=== PATIENT | female | born 1955 | race Caucasian/White ===

== ENCOUNTER 2017-08-21 07:49 | Day surgery (SDC) | payer MEDICAID ==
[~2017-08-21] VITALS: Ht 134.6 cm; Wt 71.2 kg
[~2017-08-21 07:49] MED LIST: BALANCED SALT IRRIG SOLN COMB1 500ML OP ONE
[2017-08-21] MEDS ORDERED: TROPICAMIDE 1% OPHTH DROPS 15ML LEFTEYE ONE (08:30)
[2017-08-21] MEDS ORDERED: CYCLOPENTOLATE HCL 2% OPHTH DROPS 2ML LEFTEYE ONE (08:30)
[2017-08-21] MEDS ORDERED: PHENYLEPHRINE HCL 10% OPHTH DROPS 5ML LEFTEYE ONE (08:30)
[2017-08-21 08:55] LABS: BASOPHILS % 1.8 % (0.0-2.0); EOSINOPHILS % 2.9 % (0.0-5.0); HEMATOCRIT. 38.2 % (36.0-48.0); LYMPHOCYTES % 38.4 % (20.0-50.0); MEAN CORPUSCULAR VOLUME 87.9 fL (81.0-99.0); MEAN PLATELET VOLUME 10.5 fl (7.4-10.4); MONOCYTES % 7.4 % (2.0-8.0); NEUTROPHILS % 49.5 % (40.0-76.0); PLATELET 193 x1000/uL (130-400); RED BLOOD CELL COUNT 4.34 mill/uL (4.2-5.4); RED CELL DISTRIBUTION WIDTH 12.8 % (11.6-14.6)
[2017-08-21 09:01] LABS: CARBON DIOXIDE 26 mEq/L (21-32); CHLORIDE 107 mEq/L (98-107)
[2017-08-21] MEDS ORDERED: SODIUM CHLORIDE 0.9% 1,000 ML IV ONE (09:30)
[2017-08-21] MEDS ORDERED: SITA1TAB6 PO (09:57)
[2017-08-21] MEDS ORDERED: HYALURONATE SODIUM 14 MG/ML 0.85ML SYRINGE IO ONE (10:54)
[2017-08-21] MEDS ORDERED: LIDOCAINE HCL 1% 20ML VIAL (Pyxis) INJ ONE (11:01)
[2017-08-21] MEDS ORDERED: PROPOFOL 200MG/20ML VIAL IV ONE (11:01)
[2017-08-21] MEDS ORDERED: LABETALOL HCL 20MG/4ML CARPUJECT IV PRN (11:30)
[2017-08-21] MEDS ORDERED: ONDANSETRON HCL 4MG/2ML VIAL IV PRN (11:30)
[2017-08-21] MEDS ORDERED: MEPERIDINE HCL/PF 25MG/ML CPJ IV PRN (11:30)
[2017-08-21] MEDS ORDERED: LIDOCAINE HCL/PF 2% 20 MG/ML 10ML VIAL ONE (14:35)
[2017-08-21] MEDS ORDERED: CIPROFLOXACIN 0.3% OPHTH SOLN 2.5ML ONE (14:35)
[2017-08-21] MEDS ORDERED: NEO/POLYMYX B SULF/DEXAMETH OPHTH OINT 3.5GM ONE (14:35)
[2017-08-21] MEDS ORDERED: BALANCED SALT IRRIG SOLN 15ML ONE (14:35)
[2017-08-21] MEDS ORDERED: TETRACAINE 0.5% OPHTH DROPS 4ML ONE (14:35)
[2017-08-21] MEDS ORDERED: PREDNISOLONE ACETATE 1% OPHTH DROPS 1ML ONE (14:35)
== END 2017-08-21 13:00 | disposition home or self-care (01) ==
LOC: OR 07:49
PROVIDERS: ATTEND Ophthalmology
DX: H25.89 Other age-related cataract (principal); E11.69 Type 2 diabetes mellitus with other specified complication; I45.19 Other right bundle-branch block; Z98.890 Other specified postprocedural states; Z79.899 Other long term (current) drug therapy
CPT/HCPCS: 36415; 66984; 80048; 82962; 85025; J3490; J7030; V2632; J2704